=== PATIENT | female | born 1980 | race African-American/Black ===

== ENCOUNTER 2021-11-22 20:11 | Inpatient (IN) | payer OTHER ==
[~2021-11-22] VITALS: Ht 175.3 cm; Wt 173.3 kg
[2021-11-23 01:02] LABS: BASOPHILS % 1.5 % (0.0-2.0); EOSINOPHILS % 2.6 % (0.0-5.0); HEMATOCRIT. 34.6 % (36.0-48.0); HEMOGLOBIN. 10.9 g/dL (12.0-16.0); LYMPHOCYTES % 40.3 % (20.0-50.0); MEAN CORPUSCULAR HEMOGLOBIN 24.2 pg (28.0-32.0); MEAN CORPUSCULAR VOLUME 76.7 fL (81.0-99.0); MEAN PLATELET VOLUME 8.5 fl (7.4-10.4); MONOCYTES % 5.9 % (2.0-8.0); NEUTROPHILS % 49.7 % (40.0-76.0); PLATELET 293 x1000/uL (130-400); RED BLOOD CELL COUNT 4.51 mill/uL (4.2-5.4); RED CELL DISTRIBUTION WIDTH 23.1 % (11.6-14.6)
[2021-11-23 01:07] LABS: CHLORIDE 108 mEq/L (98-107)
[2021-11-23] MEDS ORDERED: LABETALOL HCL VIAL 20 MG/4 ML VIAL IV ONE (03:30)
[2021-11-23] MEDS ORDERED: TIZANIDINE HCL 2MG TABLET PO ONE (03:45)
[2021-11-23] MEDS ORDERED: LABETALOL 5MG/ML SYR 20 MG/4 ML SYRINGE IV SCH (04:00)
[2021-11-23] MEDS: ACETAMINOPHEN 325MG TABLET PO PRN ×3 (08:17→20:00)
[2021-11-23 12:00] VITALS: BP 148/88
[2021-11-23 14:06] VITALS: BP 148/88
[2021-11-23 16:00] VITALS: BP 148/90
[2021-11-23] MEDS ORDERED: ONDANSETRON HCL 4MG/2ML INJ IV PRN (16:00)
[2021-11-23] MEDS: AMLODIPINE 10MG TABLET PO SCH (16:49)
[2021-11-23 20:00] VITALS: BP 164/100
[2021-11-23] MEDS ORDERED: CLONIDINE 0.1MG TABLET PO PRN (20:00)
[2021-11-24] VITALS (7 sets, daily range): BP systolic 107–150; BP diastolic 63–96
[2021-11-24] MEDS: ACETAMINOPHEN 325MG TABLET PO PRN ×2 (04:31→09:48)
[2021-11-24] MEDS ORDERED: MONT10TA32 PO (05:48)
[2021-11-24] MEDS ORDERED: AMLO5TAB88 PO (05:48)
[2021-11-24] MEDS ORDERED: TIZA4TAB5 MT (05:48)
[2021-11-24] MEDS ORDERED: LOSA100T32 PO (05:48)
[2021-11-24] MEDS ORDERED: ASPIRIN 81MG TABLET PO SCH (09:00)
[2021-11-24] MEDS ORDERED: HYDRALAZINE HCL 100MG TABLET PO SCH (09:00)
[2021-11-24] MEDS: AMLODIPINE 10MG TABLET PO SCH (09:49)
[2021-11-24] MEDS ORDERED: HYDR100T26 MT (13:06)
[2021-11-24 14:50] LABS: CLARITY URINE CLEAR (CLEAR); COLOR URINE YELLOW (YELLOW); KETONES URINE NEGATIVE (NEGATIVE); LEUKOCYTE ESTERASE URINE TRACE (NEGATIVE); NITRITE URINE NEGATIVE (NEGATIVE); OCCULT BLOOD URINE NEGATIVE (NEGATIVE); PH URINE 8.5 (4.5-8.0); PROTEIN URINE NEGATIVE (NEGATIVE); SPECIFIC GRAVITY URINE 1.012 (1.005-1.030)
[2021-11-24] MEDS ORDERED: ASPI-1406 MT (15:37)
[2021-11-24] MEDS ORDERED: KETOROLAC 30MG/ML VIAL IV PRN (15:45)
[2021-11-24 16:06] LABS: BASOPHILS % 1.5 % (0.0-2.0); EOSINOPHILS % 1.7 % (0.0-5.0); HEMATOCRIT. 34.8 % (36.0-48.0); HEMOGLOBIN. 11.1 g/dL (12.0-16.0); LYMPHOCYTES % 33.3 % (20.0-50.0); MEAN PLATELET VOLUME 9.3 fl (7.4-10.4); MONOCYTES % 5.7 % (2.0-8.0); NEUTROPHILS % 57.8 % (40.0-76.0); PLATELET 324 x1000/uL (130-400); RED BLOOD CELL COUNT 4.64 mill/uL (4.2-5.4); RED CELL DISTRIBUTION WIDTH 22.8 % (11.6-14.6)
[2021-11-24 16:20] LABS: CHLORIDE 110 mEq/L (98-107)
[2021-11-24 16:27] LABS: LDL CHOLESTEROL 44 mg/dL (5-100)
[2021-11-24 16:28] LABS: HDL CHOLESTEROL 52 mg/dL (40-59)
[2021-11-25 11:18] LABS: CANNABINOID URINE SCREEN NEGATIVE (NEGATIVE); OPIATES URINE SCREEN NEGATIVE (NEGATIVE); PHENCYCLIDINE URINE SCREEN NEGATIVE (NEGATIVE)
[2021-11-25 11:19] LABS: *AMPHETAMINES SCREEN URINE NEGATIVE (NEGATIVE); *BARBITURATES SCREEN URINE NEGATIVE (NEGATIVE); *BENZODIAZEPINES SCREEN URINE NEGATIVE (NEGATIVE); *COCAINE SCREEN URINE NEGATIVE (NEGATIVE); METHADONE URINE SCREEN NEGATIVE (NEGATIVE)
[2021-11-25 14:23] LABS: PLATELET ESTIMATE NORMAL
== END 2021-11-24 17:55 | disposition home or self-care (01) | DRG 199 ==
LOC: ER 20:11 → ENRESERV 11-23 12:14 → 8WST 11-23 13:26
PROVIDERS: ADMIT Internal Medicine; ATTEND Internal Medicine
DX: I16.0 Hypertensive urgency (principal); G45.9 Transient cerebral ischemic attack, unspecified; E87.8 Other disorders of electrolyte and fluid balance, not elsewhere classified; Z68.43 Body mass index [BMI] 50.0-59.9, adult; E66.01 Morbid (severe) obesity due to excess calories; J45.909 Unspecified asthma, uncomplicated; D64.9 Anemia, unspecified; I10 Essential (primary) hypertension; Z98.891 History of uterine scar from previous surgery; Z88.6 Allergy status to analgesic agent; Z71.3 Dietary counseling and surveillance
CPT/HCPCS: 36415; 80048; 80053; 80061; 80305; 81003; 85025; 99285; J1885; J3490